=== PATIENT | male | born 1985 | race Hispanic/Latino ===

== ENCOUNTER 2021-06-13 06:55 | Observation (INO) | payer OTHER ==
[~2021-06-13] VITALS: Ht 167.6 cm; Wt 71.8 kg
[2021-06-13 07:09] LABS: BASOPHILS % (AUTO) 0.7 % (0.0-5.0); EOSINOPHILS % (AUTO) 2.8 % (0.0-8.0); HEMATOCRIT 43.4 % (42-54); LYMPHOCYTES % (AUTO) 22.6 % (21.0-51.0); MEAN CORPUSCULAR HEMOGLOBIN 29.1 pg (27.0-33.0); MEAN CORPUSCULAR HGB CONC 36.6 g/dL (32.0-36.0); MEAN CORPUSCULAR VOLUME 79.5 fL (79-99); MONOCYTES % (AUTO) 7.4 % (3.0-13.0); NEUTROPHILS % (AUTO) 66.1 % (40.0-77.0); PLATELET COUNT (AUTO) 616 K/uL (130-400); RED BLOOD CELL COUNT(AUTO) 5.46 MIL/uL (4.50-6.20); RED CELL DISTRIBUTION WIDTH 12.1 % (11.0-15.5); WHITE BLOOD COUNT (AUTO) 13.8 K/uL (4.8-10.8)
[2021-06-13] MEDS: NITROGLYCERIN 0.4 MG SL TAB SL PRN ×2 (07:20→10:23)
[2021-06-13 07:29] LABS: ALBUMIN 3.8 g/dL (3.5-5.0); B-TYPE NATRIURETIC PEPTIDE 9 pg/mL (0-100); BILIRUBIN,TOTAL 0.6 mg/dL (0.2-1.0); CREATININE 1.1 mg/dL (0.5-1.5); POTASSIUM 4.3 mmol/L (3.5-5.1); TOTAL PROTEIN, SERUM 7.9 g/dL (6.0-8.3)
[2021-06-13] MEDS ORDERED: ASPIRIN 325MG TAB PO ONE (07:30)
[2021-06-13] MEDS ORDERED: 0.9%NACL 1000ML 1,000 ML IV ONE (07:30)
[2021-06-13] MEDS ORDERED: HYDRALAZINE 20MG/ML VIAL IV PRN (08:00)
[2021-06-13] MEDS ORDERED: ACETAMINOPHEN 325 MG TAB PO PRN ×2 (08:00)
[2021-06-13] MEDS ORDERED: ONDANSETRON 4MG INJ IV PRN (08:00)
[2021-06-13] MEDS ORDERED: CLOPIDOGREL 300MG TAB PO ONE (08:00)
[2021-06-13] MEDS ORDERED: DiphenhydrAMINE HCL 50 MG/ML VIAL IV PRN (08:00)
[2021-06-13] MEDS ORDERED: CEFTRIAXONE 1G VIAL IV SCH (08:00)
[2021-06-13] MEDS ORDERED: FAMOTIDINE 20MG VIAL IV SCH ×2 (09:00)
[2021-06-13] MEDS ORDERED: FOLIC ACID 5 MG/ML VIAL IV SCH (09:00)
[2021-06-13] MEDS ORDERED: 0.9%NACL 1000ML 1,000 ML IV SCH (09:00)
[2021-06-13] MEDS ORDERED: THIAMINE HCL 100 MG/ML 2ML VIAL IVP SCH (09:00)
[2021-06-13] MEDS ORDERED: NITROGLYCERIN PATCH 0.2 MG/HR TD SCH (09:00)
[2021-06-13 09:03] LABS: INR 0.94 (0.85-1.15); PROTHROMBIN TIME 10.3 SEC (9.6-11.6)
[2021-06-13 09:03] LABS: AMPHET/METH SCREEN,URINE NEGATIVE (NEGATIVE); BARBITURATE SCREEN, URINE NEGATIVE (NEGATIVE); BENZODIAZEPINES SCREEN,URINE NEGATIVE (NEGATIVE); CANNABINOID SCREEN,URINE POSITIVE (NEGATIVE); COCAINE SCREEN,URINE POSITIVE (NEGATIVE); OPIATE SCREEN,URINE NEGATIVE (NEGATIVE); PHENCYCLIDINE SCREEN,URINE NEGATIVE (NEGATIVE)
[2021-06-13 09:04] LABS: PARTIAL THROMBOPLASTIN TIME 25.9 SEC (26.3-35.5)
[2021-06-13 09:10] LABS: CHOLESTEROL 329 mg/dL (<200); HDL CHOLESTEROL 42 mg/dL (29-71); LDL DIRECT 139 mg/dL (0-99); TRIGLYCERIDES 1069 mg/dL (30-200)
[2021-06-13] MEDS ORDERED: IOHEXOL-350 75 ML VIAL IV ONE (09:11)
[2021-06-13 09:56] LABS: HEMOGLOBIN A1C 10.8 % (4.0-6.0)
[2021-06-13 10:15] VITALS: BP 155/115
[2021-06-13] MEDS: FISH OIL 1000 MG/CAP PO SCH ×2 (10:40→21:04)
[2021-06-13] MEDS: INSULIN HUMULIN R 100 UNIT/ML 3ML SQ SCH ×5 (11:23→21:05)
[2021-06-13] MEDS ORDERED: INSULIN HUMULIN R 100 UNIT/ML 3ML SQ SCH (11:30)
[2021-06-13 12:53] VITALS: BP 125/86
[2021-06-13 15:53] VITALS: BP 129/82
[2021-06-13] MEDS ORDERED: LOSARTAN 25 MG TABLET PO SCH (17:00)
[2021-06-13 19:31] VITALS: BP 116/80
[2021-06-13] MEDS ORDERED: ATORVASTATIN 20 MG TABLET PO SCH (21:00)
[2021-06-13] MEDS ORDERED: INSULIN GLARGINE 100 UNITS/ML 10 ML VIAL SQ SCH (21:00)
[2021-06-13] MEDS ORDERED: AMLODIPINE 5 MG TAB PO ONE (21:00)
[2021-06-13] MEDS ORDERED: ATORVASTATIN 40 MG TABLET PO SCH (21:00)
[2021-06-14] MEDS ORDERED: INSULIN HUMULIN R 100 UNIT/ML 3ML SQ SCH (07:30)
[2021-06-14] MEDS ORDERED: PANTOPRAZOLE 40 MG/VIAL IVP SCH (09:00)
[2021-06-14] MEDS ORDERED: ASPIRIN 81MG CHEW TAB PO SCH (09:00)
== END 2021-06-13 22:00 | disposition left against medical advice (07) ==
LOC: EDH 06:55 → EDHIP 06:56 → 4BH 10:22
PROVIDERS: ADMIT Internal Medicine; ATTEND Internal Medicine
DX: T40.5X1A Poisoning by cocaine, accidental (unintentional), initial encounter (principal); I16.0 Hypertensive urgency; R07.89 Other chest pain; E11.65 Type 2 diabetes mellitus with hyperglycemia; D72.829 Elevated white blood cell count, unspecified; E87.1 Hypo-osmolality and hyponatremia; E86.0 Dehydration; F14.129 Cocaine abuse with intoxication, unspecified; E78.1 Pure hyperglyceridemia; I5A Non-ischemic myocardial injury (non-traumatic); Z91.14 Patient's other noncompliance with medication regimen; Z91.19 Patient's noncompliance with other medical treatment and regimen; Z79.899 Other long term (current) drug therapy; Z98.890 Other specified postprocedural states
CPT/HCPCS: 36415; 71045; 71275; 80053; 80061; 80305; 82550; 82948 ×3; 83036; 83735; 83880; 84484 ×3; 85025; 85378; 85610; 85730; 93005 ×3; 96361; 96372; 96374; 96375; 99285; G0378 ×13; J0360 ×2; J0696; J1815 ×3; J3411; J3490; Q9967